=== PATIENT | female | born 1965 | race Caucasian/White ===

== ENCOUNTER → 2021-08-08 | Outpatient (CLI) | payer OTHER ==
--- NOTE | 2021-08-08 13:29 | RAD ---
EXAM: Lumbar spine, 3 views. HISTORY: Pain. COMPARISON: None. FINDINGS: 3 views of the lumbar spine are obtained. There is mild lumbar dextroscoliosis. There is no listhesis. The vertebral bodies are normal in height. There is facet arthropathy predominantly at th e lower lumbar levels. There are surgical clips anastomoses overlying the abdomen. IMPRESSION: Multilevel degenerative change, primarily at the lower lumbar levels. No acute osseous fi nding. Electronically signed by: Rohini Kaye MD (08/08/2021 1:27 PM) [id number]
== END ==
LOC: RAD 12:14
PROVIDERS: ATTEND Family Medicine
DX: Z02.71 Encounter for disability determination (principal); M47.816 Spondylosis without myelopathy or radiculopathy, lumbar region; M41.86 Other forms of scoliosis, lumbar region; M48.8X6 Other specified spondylopathies, lumbar region; Z98.890 Other specified postprocedural states
CPT/HCPCS: 72100